=== PATIENT | female | born 1960 | race Caucasian/White ===

== ENCOUNTER → 2016-08-11 | Outpatient (CLI) | payer BC | LOC: KOH-I 15:03 | DX: M25.541 Pain in joints of right hand (principal) | CPT/HCPCS: 73130 ==

== ENCOUNTER → 2020-07-01 | Outpatient (CLI) | payer BC, OTHER | LOC: KOH-I 13:06 | DX: M54.16 Radiculopathy, lumbar region (principal); M51.36 Other intervertebral disc degeneration, lumbar region; M48.061 Spinal stenosis, lumbar region without neurogenic claudication | CPT/HCPCS: 72100 ==

== ENCOUNTER 2020-10-25 10:45 | Emergency (ER) | payer BC ==
[~2020-10-25] VITALS: Ht 162.6 cm; Wt 86.2 kg
== END 2020-10-25 13:50 | disposition home or self-care (01) ==
LOC: ER1 10:45
DX: U07.1 COVID-19 (principal); I10 Essential (primary) hypertension; Z88.2 Allergy status to sulfonamides; Z23 Encounter for immunization
CPT/HCPCS: 99283; M0243